=== PATIENT | male | born 2000 | race Caucasian/White ===

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

== ENCOUNTER 2021-09-05 18:21 | Emergency (ER) | payer OTHER ==
[2021-09-05 19:42] VITALS: BP 106/66; PULSE 92; RESP 16; TEMP 98.5
--- NOTE | 2021-09-05 20:40 | ED ---
Recheck HPI - General Chief Complaint: Recheck/Abnormal Lab/Rx Stated Complaint: Wants covid test Time Seen by Provider: 09/05/21 20:37 Source: patient, RN notes reviewed Mode of arrival: ambulatory Limitations: no limitations - History of Present Illness Initial Comments: Impression presents to the emergency department 41 COVID-19 test. Patient had symptoms of upper respiratory infection which are now resolved. Needs a note to return to work. Patient asymptomatic at this time. No headache, no fever or chills, no changes in vision or hearing, no sore throat or difficulty with speech, no neck pain, no chest pain or shortness of breath, no abdominal pain, no nausea or vomiting, no changes in urination or bowel movements, no numbness or tingling, no extremity pain, no skin rashes or lesions. - Related Data Home Medications Medication Instructions Recorded Confirmed Methylphenidate HCl [Concerta] 54 mg PO DAILY 06/07/15 07/07/15 Amoxicillin 875 mg PO Q12HR 07/07/15 07/07/15 Multivitamin [Children's 1 each PO DAILY 07/07/15 07/07/15 Multivitamins] Previous Rx's Medication Instructions Recorded prednisoLONE [Prelone Syrup] 0 mg PO DIRECTED #30 ml 07/07/15 Amoxicillin/Potassium Clav 1 tab PO Q12HR #10 tab 04/11/17 [Augmentin 875-125 Tablet] Allergies Allergy/AdvReac Type Severity Reaction Status Date / Time No Known Allergies Allergy Verified 09/05/21 19:42 Review of Systems ROS Statement: Those systems with pertinent positive or pertinent negative responses have been documented in the HPI. ROS Other: All systems not noted in ROS Statement are negative. Past Medical History Past Medical History: No Reported History History of Any Multi-Drug Resistant Organisms: None Reported Past Surgical History: No Surgical Hx Reported Past Psychological History: ADD/ADHD Smoking Status: Never smoker Past Alcohol Use History: None Reported Past Drug Use History: None Reported General Exam Limitations: no limitations General appearance: alert, in no apparent distress Head exam: Present: atraumatic, normocephalic, normal inspection Eye exam: Present: normal appearance, PERRL, EOMI. Absent: scleral icterus, conjunctival injection, periorbital swelling ENT exam: Present: normal exam, normal oropharynx, mucous membranes moist, TM's normal bilaterally, normal external ear exam. Absent: mucous membranes dry Neck exam: Present: normal inspection. Absent: tenderness, meningismus, lymphadenopathy Respiratory exam: Present: normal lung sounds bilaterally. Absent: respiratory distress, wheezes, rales, rhonchi, stridor Cardiovascular Exam: Present: regular rate, normal rhythm, normal heart sounds. Absent: systolic murmur, diastolic murmur, rubs, gallop, clicks GI/Abdominal exam: Present: soft, normal bowel sounds. Absent: distended, tenderness, guarding, rebound, rigid Extremities exam: Present: normal inspection, full ROM, normal capillary refill. Absent: tenderness, pedal edema, joint swelling, calf tenderness Back exam: Present: normal inspection Neurological exam: Present: alert, oriented X3, CN II-XII intact Psychiatric exam: Present: normal affect, normal mood Skin exam: Present: warm, dry, intact, normal color. Absent: rash, cyanosis, diaphoretic, erythema, urticaria, petechiae, pallor, mottled, abrasion Course Vital Signs 09/05/21 19:40 Temperature 98.5 F Pulse Rate 92 Respiratory 16 Rate Blood Pressure 106/66 O2 Sat by Pulse 99 Oximetry Medical Decision Making - Medical Decision Making Patient presents for COVID-19 testing. Essentially asymptomatic. Patient was told to return to the ER for any signs or symptoms worsen. Told to return immediately if any other problems arise. All questions answered. Treatment plan discussed. Patient in agreement Every effort has been made to ensure accuracy of this dictation. However, due to the limitations of electronic medical records and dictation devices, errors in charting still occur. Present physician is Dr. Reynoso - Lab Data Lab Results 09/05/21 Range/Units 19:43 Coronavirus (PCR) Not Detected (Not Detectd) Disposition Clinical Impression: Encounter for screening for COVID-19 Disposition: HOME SELF-CARE Condition: Good Instructions (If sedation given, give patient instructions): COVID-19 (Coronavirus Disease 2019) (ED), COVID-19: Slow the Coronavirus Spread (ED) Additional Instructions: Follow-up with your regular physician as directed. Return to the ER immediately if any symptoms worsen, new symptoms arise, or any other problems develop. Is patient prescribed a controlled substance at d/c from ED?: No Referrals: Billy Gr Jr, [Primary Care Provider] - 09/12/21 Time of Disposition: 20:40
== END 2021-09-05 20:47 | disposition home or self-care (01) ==
LOC: EC 18:21
DX: Z20.822 Contact with and (suspected) exposure to COVID-19 (principal)
CPT/HCPCS: 87635; 99283

== ENCOUNTER 2024-08-30 17:42 | Emergency (ER) | payer BC, OTHER ==
[2024-08-30 17:51] VITALS: BP 112/74; PULSE 73; RESP 22; TEMP 97.8
[2024-08-30 17:55] LABS: Glucose,Whole Blood 250 mg/dL (70-110)
--- NOTE | 2024-08-30 18:52 | ED ---
General Adult HPI - General Chief complaint: Recheck/Abnormal Lab/Rx Stated complaint: novalog rx - diabetic Time Seen by Provider: 08/30/24 18:01 Source: patient Mode of arrival: ambulatory Limitations: no limitations - History of Present Illness Initial comments: 24-year-old male with history of type 1 diabetes presenting for refill of his NovoLog. Patient follows with funeral home director in [place]. He reports that he has called the office for refill but did not hear back. He has been out for 3 weeks. He is asymptomatic at this time. - Related Data Home Medications Medication Instructions Recorded Confirmed Methylphenidate HCl [Concerta] 54 mg PO DAILY 06/07/15 07/07/15 Amoxicillin 875 mg PO Q12HR 07/07/15 07/07/15 Multivitamin [Children's 1 each PO DAILY 07/07/15 07/07/15 Multivitamins] Previous Rx's Medication Instructions Recorded prednisoLONE [Prelone Syrup] 0 mg PO DIRECTED #30 ml 07/07/15 Amoxicillin/Potassium Clav 1 tab PO Q12HR #10 tab 04/11/17 [Augmentin 875-125 Tablet] Insulin Aspart [NovoLOG Flexpen] 60 units SQ DIRECTED #30 each 08/30/24 Allergies Allergy/AdvReac Type Severity Reaction Status Date / Time No Known Allergies Allergy Verified 08/30/24 17:51 Review of Systems ROS Statement: Those systems with pertinent positive or pertinent negative responses have been documented in the HPI. ROS Other: All systems not noted in ROS Statement are negative. Past Medical History Past Medical History: Diabetes Mellitus History of Any Multi-Drug Resistant Organisms: None Reported Past Surgical History: No Surgical Hx Reported Past Psychological History: ADD/ADHD Smoking Status: Never smoker Past Alcohol Use History: None Reported Past Drug Use History: None Reported General Exam Limitations: no limitations General appearance: alert, in no apparent distress Head exam: Present: atraumatic, normocephalic, normal inspection Eye exam: Present: normal appearance, EOMI Neck exam: Present: normal inspection. Absent: meningismus Respiratory exam: Absent: respiratory distress Cardiovascular Exam: Present: regular rate Neurological exam: Present: alert, oriented X3 Psychiatric exam: Present: normal affect, normal mood Skin exam: Present: warm, dry, normal color Course Vital Signs 08/30/24 17:47 Temperature 97.8 F Pulse Rate 73 Respiratory 22 Rate Blood Pressure 112/74 O2 Sat by Pulse 98 Oximetry Medical Decision Making - Medical Decision Making Was pt. sent in by a medical professional or institution (ZULEMA Lopez, BUS OPERATOR, urgent care, hospital, or senior care...) When possible be specific @ -No Did you speak to anyone other than the patient for history (EMS, parent, family, police, friend...)? What history was obtained from this source @ -No Did you review nursing and triage notes (agree or disagree)? Why? @ -I reviewed and agree with nursing and triage notes Were old charts reviewed (outside hosp., previous admission, EMS record, old EKG, old radiological studies, urgent care reports/EKG's, senior care records)? Report findings @ -No old charts were reviewed Differential Diagnosis (chest pain, altered mental status, abdominal pain women, abdominal pain men, vaginal bleeding, weakness, fever, dyspnea, syncope, headache, dizziness, GI bleed, back pain, seizure, CVA, palpatations, mental health, musculoskeletal)? @ -Not applicable EKG interpreted by me (3pts min.). @ -As above X-rays interpreted by me (1pt min.). @ -None done CT interpreted by me (1pt min.). @ -None done U/S interpreted by me (1pt. min.). @ -None done What testing was considered but not performed or refused? (CT, X-rays, U/S, labs )? Why? @ -None What meds were considered but not given or refused? Why? @ -None Did you discuss the management of the patient with other professionals (professionals i.e. ZULEMA Lopez, BUS OPERATOR, lab, RT, psych nurse, social economist, clay miller, teacher, general service officer, egg caser)? Give summary @ -No Was smoking cessation discussed for >3mins.? @ -No Was critical care preformed (if so, how long)? @ -No Were there social determinants of health that impacted care today? How? (Homelessness, low income, unemployed, alcoholism, drug addiction, transportation, low edu. Level, literacy, decrease access to med. care, alf, rehab)? @ -No Was there de-escalation of care discussed even if they declined (Discuss DNR or withdrawal of care, Hospice)? DNR status @ -No What co-morbidities impacted this encounter? (DM, HTN, Smoking, COPD, CAD, Cancer, CVA, ARF, Chemo, Hep., AIDS, mental health diagnosis, sleep apnea, morbid obesity)? @ -None Was patient admitted / discharged? Hospital course, mention meds given and route, prescriptions, significant lab abnormalities, going to OR and other pertinent info. @ -24-year-old male presenting for refill of his NovoLog. Follows with funeral home director in [place]. He has been out for 3 weeks. He has no symptoms at this time. Glucose here is 250. Patient states that he has his dosing written down at home and does not have any dosing written in his phone available to him. Spoke with pharmacy staff, his max dosing would be 60 units/day. Patient confirms that he does have the information needed to do his dosing at home. I will send him his refill. Follow-up with endocrinology. Follow-up with PCP. Report back to ER with any new or worsening symptoms. Discussed return parameters and answered all questions. Patient conveyed verbal understanding and agreed to the plan. I discussed this case in detail with my attending Dr. Astuidllo Undiagnosed new problem with uncertain prognosis? @ -No Drug Therapy requiring intensive monitoring for toxicity (Heparin, Nitro, Insulin, Cardizem)? @ -No Were any procedures done? @ -No Diagnosis/symptom? @ -Visit for insulin refill Acute, or Chronic, or Acute on Chronic? @ -Acute Uncomplicated (without systemic symptoms) or Complicated (systemic symptoms)? @ -Uncomplicated Side effects of treatment? @ -No Exacerbation, Progression, or Severe Exacerbation? @ -No Poses a threat to life or bodily function? How? (Chest pain, [place], [place], pneumonia, PE, COPD, DKA, ARF, appy, cholecystitis, CVA, Diverticulitis, Homicidal, Suicidal, threat to staff... and all critical care pts) @ -Potential if patient does not continue taking his insulin as prescribed - Lab Data Lab Results 08/30/24 Range/Units 17:53 POC Glucose (mg/dL) 250 H (70-110) mg/dL POC Glu [employer] ID Liniarski Dennise Disposition Clinical Impression: Encounter for medication refill Disposition: HOME SELF-CARE Condition: Good Additional Instructions: Follow-up with PCP and endocrinology. Report back to ER with any new or worsening symptoms. Prescriptions: Insulin Aspart [NovoLOG Flexpen] 60 units SQ DIRECTED #30 each Is patient prescribed a controlled substance at d/c from ED?: No Referrals: Billy Gr Jr, DO [Primary Care Provider] - 1-2 days Ash Browne MD [REFERRING] - 1-2 days Time of Disposition: 18:58
== END 2024-08-30 19:02 | disposition home or self-care (01) ==
LOC: EC 17:42
DX: Z76.0 Encounter for issue of repeat prescription (principal); E10.9 Type 1 diabetes mellitus without complications
CPT/HCPCS: 36415; 99282

== ENCOUNTER → 2024-11-14 | Outpatient (CLI) | payer BC ==
[2024-11-14 10:08] LABS: Basophils # (A) 0.07 X 10*3/uL (0.00-0.10); Basophils % (A) 1.4 %; Eosinophils # (A) 0.11 X 10*3/uL (0.04-0.35); Eosinophils % (A) 2.2 %; HCT 41.8 % (39.6-50.0); HGB 14.1 g/dL (13.0-17.0); Immature Grans, Automated 0.20 %; Lymphocytes # (A) 1.70 X 10*3/uL (0.90-5.00); Lymphocytes % (A) 33.6 %; MCH 31.3 pg (27.0-32.0); MCHC 33.7 g/dL (32.0-37.0); MCV 92.9 FL (80.0-97.0); Monocytes # (A) 0.39 X 10*3/uL (0.20-1.00); Monocytes % (A) 7.7 %; NRBC Per 100 WBC 0 X 10*3/uL (0.00-0.01); Neutrophils # (A) 2.78 X 10*3/uL (1.80-7.70); Neutrophils % (A) 54.9 %; Platelet Count 313 X 10*3/uL (140-440); RBC 4.50 X 10*6/uL (4.40-5.60); RDW 12.2 % (11.5-14.5); WBC 5.06 X 10*3/uL (4.50-10.00)
[2024-11-14 10:32] LABS: ALT 57 U/L (10-49); AST 38 U/L (14-35); Albumin 4.3 g/dL (3.8-4.9); Albumin/Globulin Ratio 1.87 Ratio (1.60-3.17); Alkaline Phosphatase 113 U/L (41-126); Anion Gap 11.20 mmol/L (4.00-12.00); BUN/Creat Ratio 19.50 Ratio (12.00-20.00); Blood Urea Nitrogen 15.6 mg/dL (9.0-27.0); Calcium 9.3 mg/dL (8.7-10.3); Carbon Dioxide 23.8 mmol/L (21.6-31.8); Chloride 98 mmol/L (96-109); Cholesterol 242.00 mg/dL (0.00-200.00); Globulin 2.3 g/dL (1.6-3.3); Glucose 352 mg/dL (70-110); HDL Cholesterol 66.50 mg/dL (40.00-60.00); LDL Cholesterol,Calculated 160.1 mg/dL (0.0-131.0); Potassium 4.6 mmol/L (3.5-5.5); Sodium 133 mmol/L (135-145); T4, Free (Free Thyroxine) 1.25 ng/dL (0.80-1.80); Total Protein 6.6 g/dL (6.2-8.2); Triglycerides 76.80 mg/dL (0.00-149.00); VLDL Calculation 15.36 mg/dL (5.00-40.00)
== END | disposition home or self-care (01) ==
LOC: LABWHC1 07:23
DX: E10.9 Type 1 diabetes mellitus without complications (principal); Z76.89 Persons encountering health services in other specified circumstances
CPT/HCPCS: 36415; 80053; 80061; 83036; 84439; 84443; 85025